=== PATIENT | male | born 1985 | race Hispanic/Latino ===

== ENCOUNTER 2016-09-27 09:59 | Emergency (ER) | payer MEDICAID, OTHER ==
[2016-09-27 10:11] VITALS: BP 133/87; PULSE 65; RESP 18; TEMP 98.1; O2SAT 98
[2016-09-27] MEDS ORDERED: Sodium Chloride 0.9% 1,000 ML IV ONE (10:29)
--- NOTE | 2016-09-27 10:30 | C.PDOC ---
History Of Present Illness 31 y/o male presents to the ED with complains of nausea, vomiting and lightheadedness. Pt reports feeling stressed and lightheaded the past couple days and overall not feeling well. Today, patient was due in court and vomited in the court room, then sent to ED for evaluation. Pt also reports newly diagnosed diabetes, supposed to be on medications but secondary to insurance issues is not. Pt denies headache, visual changes, numbness, weakness or any other complaints. Pt reports feeling better after vomiting. Time Seen by Provider: 09/27/16 10:23 Chief Complaint (Nursing): Abdominal Pain History Per: Patient History/Exam Limitations: no limitations Onset/Duration Of Symptoms: Hrs Current Symptoms Are (Timing): Better Severity: Mild Associated Symptoms: Nausea, Vomiting. denies: Fever, Diarrhea Alleviating Factors: None Recent travel outside of the [place]: No Past Medical History Reviewed: Historical Data, Nursing Documentation, Vital Signs Vital Signs: Last Vital Signs Temp 98.1 F 09/27/16 10:06 Pulse 65 09/27/16 10:06 Resp 18 09/27/16 10:06 BP 133/87 09/27/16 10:06 Pulse Ox 98 09/27/16 11:12 - Medical History PMH: Depression (MAJOR) Family History: States: Unknown Family Hx - Social History Hx Tobacco Use: No Hx Alcohol Use: No Hx Substance Use: No - Immunization History Hx Tetanus Toxoid Vaccination: No Hx Influenza Vaccination: No Hx Pneumococcal Vaccination: No Review Of Systems Constitutional: Negative for: Fever, Chills Eyes: Negative for: Vision Change Cardiovascular: Negative for: Chest Pain Gastrointestinal: Positive for: Nausea, Vomiting. Negative for: Abdominal Pain , Diarrhea Neurological: Positive for: Other (lightheaded). Negative for: Weakness, Numbness, Headache Physical Exam - Physical Exam Appears: Non-toxic, No Acute Distress Skin: Warm, Dry, No Rash Head: Atraumatic, Normacephalic, No Tenderness, No Swelling Eye(s): bilateral: Normal Inspection (no nystagmus), PERRL, EOMI Nose: Normal Oral Mucosa: Moist Neck: Normal, Normal ROM, Supple Chest: Symmetrical, No Tenderness Cardiovascular: Rhythm Regular, No Murmur Respiratory: Normal Breath Sounds, No Rales, No Rhonchi, No Wheezing Gastrointestinal/Abdominal: Normal Exam, Soft, No Tenderness, No Guarding, No Rebound Extremity: Normal ROM Extremity: Bilateral: Atraumatic, Normal Color And Temperature, Normal ROM Neurological/Psych: Oriented x3, Normal Speech Gait: Steady ED Course And Treatment - Laboratory Results Result Diagrams: 09/27/16 10:45 09/27/16 10:45 Lab Interpretation: No Acute Changes O2 Sat by Pulse Oximetry: 98 (room air) Pulse Ox Interpretation: Normal Medical Decision Making Medical Decision Making: Impression: 31 y.o male with nausea and vomiting, normal exam Plan: * labs * UA * IV fluids * Reglan Progress: Labs reviewed unremarkable. Patient reevaluated and reports complete resolution of symptoms and was able to tolerate PO. Patient feels comfortable going home and will be discharged. Patient given follow up instructions. Instructed to return to ER if symptoms worsen or new symptoms arise. Disposition Counseled Patient/Family Regarding: Need For Followup, Rx Given - Disposition Referrals: [facility] [Outside] [facility] [Outside] Disposition: HOME/ ROUTINE Disposition Time: 11:11 Condition: STABLE Additional Instructions: Your labs were normal Please take medication as needed Follow up with your primary doctor or clinic for further evaluation Return to the emergency department at any time if symptoms persist or worsen. Prescriptions: Metoclopramide [Reglan] 1 tab PO TID PRN #25 tab PRN Reason: Nausea/Vomiting Instructions: Acute Nausea and Vomiting (ED) - POA Present On Arrival: None - Clinical Impression Clinical Impression: Nausea, Stress - PA / AUTOMOBILE ENGINE ASSEMBLER / Resident Statement MD/DO has reviewed & agrees with the documentation as recorded. - Scribe Statement The provider has reviewed the documentation as recorded by the Amy Hardy All medical record entries made by the Pierceibprosper were at my direction and personally dictated by me. I have reviewed the chart and agree that the record accurately reflects my personal performance of the history, physical exam, medical decision making, and the department course for this patient. I have also personally directed, reviewed, and agree with the discharge instructions and disposition.
[2016-09-27] MEDS ORDERED: Sodium Chloride 0.9% 1,000 ML ONE (10:36)
[2016-09-27 10:50] LABS: BASO % 0.4 % (0.0-2.0); EOS # 0.1 K/uL (0.0-0.7); EOS % 0.7 % (0.0-4.0); HEMATOCRIT 41.2 % (35.0-51.0); LYMPH % 19.2 % (20.0-40.0); MEAN CELL VOLUME 88.1 fL (80.0-94.0); MEAN CORPUSCULAR HEMOGLOBIN 29.9 pg (27.0-31.0); MEAN CORPUSCULAR HGB CONC 33.9 g/dL (33.0-37.0); MEAN PLATELET VOLUME 9.5 fL (7.2-11.7); MONO # 0.7 K/uL (0.0-0.8); RED CELL DISTRIBUTION WIDTH 13.2 % (11.5-14.5); WHITE BLOOD COUNT 10.3 K/uL (4.8-10.8)
[2016-09-27 10:59] LABS: CHLORIDE 103 mmol/L (98-107); RBC URINE 1 /hpf (0-3); URINE BILIRUBIN NEGATIVE (NEGATIVE); URINE BLOOD NEGATIVE (NEGATIVE); URINE COLOR Yellow (YELLOW); URINE GLUCOSE (UA) NORMAL (Normal); URINE KETONE NEGATIVE (NEGATIVE); URINE LEUKOCYTE ESTERASE NEG Leu/uL (Negative); URINE PROTEIN NEGATIVE (NEGATIVE); URINE UROBILINOGEN NORMAL mg/dL (0.2-1.0); WBC URINE 1 /hpf (0-5)
[2016-09-27 11:00] LABS: POTASSIUM 3.9 mmol/L (3.6-5.2); SODIUM 139 mmol/L (132-148)
[2016-09-27 11:02] LABS: ALB/GLOB RATIO 1.3 (1.0-2.1); ALKALINE PHOSPHATASE 56 U/L (38-126); AST/SGOT 29 U/L (17-59); BILIRUBIN,TOTAL 1.1 mg/dL (0.2-1.3); CARBON DIOXIDE 26 mmol/L (22-30); GFR AFRICAN-AMERICAN > 60; TOTAL PROTEIN 7.9 g/dL (6.3-8.3)
[2016-09-27 11:03] LABS: ALT/SGPT 26 U/L (21-72); BLOOD UREA NITROGEN 15 mg/dL (9-20); CALCIUM 9.6 mg/dl (8.6-10.4); GLUCOSE,RANDOM 98 mg/dL (75-110)
== END 2016-09-27 11:25 | disposition home or self-care (01) ==
LOC: C.ER 09:59
DX: Z73.3 Stress, not elsewhere classified (principal); R11.2 Nausea with vomiting, unspecified
CPT/HCPCS: 80053; 81001; 82948; 85025; 96361; 96374; 99283; J2765; J7040

== ENCOUNTER 2017-04-22 15:58 | Emergency (ER) | payer MEDICAID, OTHER ==
[2017-04-22 16:04] VITALS: BP 144/99; PULSE 63; RESP 18; TEMP 97.4; O2SAT 98
[2017-04-22] MEDS ORDERED: Amoxicillin-Clav 875-125 mg Tab PO STA (16:25)
--- NOTE | 2017-04-22 16:28 | C.PDOC ---
History Of Present Illness 32 yo male come in for evaluation of Right middle finger painful swelling, redness gradually developed around nail area for past 3 days. Pt admits to " bite nail". Otherwise, pt denies known trauma or injury, fever, chills, weakness , sensory or vascular deficits to Right middle finger. Ambulate to ED for evaluation, not in any apparent distress. Time Seen by Provider: 04/22/17 16:17 Chief Complaint (Nursing): Finger,Hand,&Wrist History Per: Patient History/Exam Limitations: no limitations Onset/Duration Of Symptoms: Gradual (For the past 3 days) Past Medical History Reviewed: Historical Data, Nursing Documentation, Vital Signs Vital Signs: Last Vital Signs Temp 97.4 F L 04/22/17 16:02 Pulse 63 04/22/17 16:02 Resp 18 04/22/17 16:02 BP 144/99 H 04/22/17 16:02 Pulse Ox 98 04/22/17 16:34 - Medical History PMH: Anxiety, Depression Family History: States: No Known Family Hx - Social History Hx Tobacco Use: No Hx Alcohol Use: No Hx Substance Use: No - Immunization History Hx Tetanus Toxoid Vaccination: No Hx Influenza Vaccination: No Hx Pneumococcal Vaccination: No Review Of Systems Except As Marked, All Systems Reviewed And Found Negative. Constitutional: Negative for: Fever, Chills Musculoskeletal: Positive for: Other ((+) Painful swelling and redness to the right middle finger) Neurological: Negative for: Weakness, Numbness Physical Exam - Physical Exam Appears: Well, Non-toxic, No Acute Distress Skin: Normal Color, Warm, Other ((+) mild edema and erythema over lateral aspect nail margin of Right middle phinger. NO flactualnce. no proximal streaking. FAROM of Right middle finger, no neurovascular deficits.) Extremity: Normal ROM, Tenderness (Right middle finger over nail margin.), No Deformity, Swelling (Right middle finger) Neurological/Psych: Oriented x3, Normal Speech, Normal Motor, Normal Sensation, Normal Reflexes ED Course And Treatment O2 Sat by Pulse Oximetry: 98 (RA) Pulse Ox Interpretation: Normal Progress Note: On re-eavluation, pt is afebrile, hemodynamicaly stable. NOn- toxic. Right hand; exam c/w middle finger paronychia. No clelulitis, no flactualnce. FAROM, no neurovascular deficits. Pt advised. ref. to F/u with PMD in 2-3 days for re-eavl. return if any new chnages. Medical Decision Making Medical Decision Making: PLAN: * Augmentin PO Disposition Counseled Patient/Family Regarding: Diagnosis, Need For Followup, Rx Given - Disposition Referrals: [facility] [Outside] Disposition: HOME/ ROUTINE Disposition Time: 16:26 Condition: STABLE Additional Instructions: WARM SALTY WATER FINGER SOAK DAILY FOR 5 MINUTES TAKE MEDICATION PRESCRIBED FOLLOW UP WITH PMD IN 2-3 DAYS FOR RE-EVALUATION. RETURN TO ED IF ANY WORSENING OR NEW CHANGES. Prescriptions: Amoxicillin/Clavulanate [Augmentin 875 MG-125 MG] 1 tab PO BID #14 tab Instructions: Paronychia (ED) Forms: [employer] (Australian) - Clinical Impression Clinical Impression: Paronychia - PA / STUDY COORDINATOR / Resident Statement MD/DO has reviewed & agrees with the documentation as recorded. - Scribe Statement The provider has reviewed the documentation as recorded by the Scribe Gladys Cueva All medical record entries made by the Scribe were at my direction and personally dictated by me. I have reviewed the chart and agree that the record accurately reflects my personal performance of the history, physical exam, medical decision making, and the department course for this patient. I have also personally directed, reviewed, and agree with the discharge instructions and disposition.
[2017-04-22] MEDS ORDERED: Amoxicillin-Clav 875-125 mg Tab PO ONE (16:47)
== END 2017-04-22 16:55 | disposition home or self-care (01) ==
LOC: C.ER 15:58
DX: L03.011 Cellulitis of right finger (principal)

== ENCOUNTER 2017-05-12 10:35 | Emergency (ER) | payer MEDICAID, OTHER ==
[2017-05-12 11:01] VITALS: PULSE 88
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
[2017-05-12 14:11] VITALS: BP 128/98; RESP 20; TEMP 98.7
[2017-05-12 15:33] VITALS: O2SAT 99
== END 2017-05-12 13:15 | disposition home or self-care (01) ==
LOC: C.ER 10:35
DX: S06.9X9A Unspecified intracranial injury with loss of consciousness of unspecified duration, initial encounter (principal); Y08.89XA Assault by other specified means, initial encounter; Y92.9 Unspecified place or not applicable

== ENCOUNTER 2017-05-12 13:24 | Emergency (ER) | payer MEDICAID ==
[2017-05-12 13:42] VITALS: RESP 18
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
[2017-05-12 14:54] VITALS: BP 160/94; PULSE 70; TEMP 98.4
[2017-05-14 09:48] VITALS: O2SAT 96
== END 2017-05-12 14:54 | disposition home or self-care (01) ==
LOC: C.ER 13:24
DX: S06.9X9D Unspecified intracranial injury with loss of consciousness of unspecified duration, subsequent encounter (principal); Y08.89XD Assault by other specified means, subsequent encounter

== ENCOUNTER 2018-03-16 13:55 | Emergency (ER) | payer MEDICAID, OTHER ==
[2018-03-16 14:07] VITALS: BMI 27.9
[2018-03-16 14:12] VITALS: BP 150/95; PULSE 75; RESP 18; TEMP 98; O2SAT 99
--- NOTE | 2018-03-16 14:23 | C.PDOC ---
History Of Present Illness 33 year old male presents to the ED for psych evaluation. Patient reports feelings of depression and suicidal ideations. No other medical complaints at this time. Denies fever, nausea, vomiting, and any other associated symptoms. Time Seen by Provider: 03/16/18 13:56 Chief Complaint (Nursing): Psychiatric Evaluation History Per: Patient History/Exam Limitations: no limitations Past Medical History Reviewed: Historical Data, Nursing Documentation, Vital Signs Vital Signs: Last Vital Signs Temp 98 F 03/16/18 14:08 Pulse 75 03/16/18 14:08 Resp 18 03/16/18 14:08 BP 150/95 H 03/16/18 14:08 Pulse Ox 99 03/16/18 14:08 - Medical History PMH: Anxiety, Depression, HTN Denies: Diabetes, Hepatitis, HIV, Seizures, Sexually Transmitted Disease Family History: States: Unknown Family Hx - Social History Hx Tobacco Use: No Hx Alcohol Use: No Hx Substance Use: No - Immunization History Hx Tetanus Toxoid Vaccination: No Hx Influenza Vaccination: No Hx Pneumococcal Vaccination: No Review Of Systems Except As Marked, All Systems Reviewed And Found Negative. Constitutional: Negative for: Fever Gastrointestinal: Negative for: Nausea, Vomiting Psych: Positive for: Depression, Suicidal ideation Physical Exam - Physical Exam Appears: Well, Non-toxic Skin: Normal Color, Warm, Dry Head: Atraumatic, Normacephalic Eye(s): bilateral: Normal Inspection Oral Mucosa: Moist Neck: Normal ROM, Supple Cardiovascular: Rhythm Regular, No Murmur Respiratory: Normal Breath Sounds, No Rales, No Rhonchi, No Wheezing Gastrointestinal/Abdominal: Normal Exam, Soft, No Tenderness Neurological/Psych: Oriented x3, Normal Speech ED Course And Treatment O2 Sat by Pulse Oximetry: 99 (RA) Pulse Ox Interpretation: Normal Medical Decision Making Medical Decision Making: Plan: -Blood sent. Urinalysis. Progress/Update: Patient stable for discharge home. medically cleared. cleared by crisis. Disposition - Disposition Disposition: HOME/ ROUTINE Disposition Time: 14:00 Condition: GOOD Additional Instructions: return to er with worsening symptoms or concerns. follow up as directed by crisis. Instructions: Depression, Suicide Prevention Forms: [employer] (American) - Clinical Impression Clinical Impression: Depression - Scribe Statement The provider has reviewed the documentation as recorded by the Scribe (Nena Bass) Provider Attestation: All medical record entries made by the Scribe were at my direction and personally dictated by me. I have reviewed the chart and agree that the record accurately reflects my personal performance of the history, physical exam, medical decision making, and the department course for this patient. I have also personally directed, reviewed, and agree with the discharge instructions and disposition.
== END 2018-03-16 16:35 | disposition home or self-care (01) ==
LOC: C.ER 13:55
DX: F32.9 Major depressive disorder, single episode, unspecified (principal); I10 Essential (primary) hypertension

== ENCOUNTER 2018-06-21 10:49 | Emergency (ER) | payer MEDICAID ==
[2018-06-21 10:49] VITALS: BMI 27.9
[2018-06-21 11:01] VITALS: BP 146/88; PULSE 82; RESP 20; TEMP 98.3; O2SAT 100
[2018-06-21] MEDS ORDERED: Lidocaine 5% Patch TD STA (11:12)
--- NOTE | 2018-06-21 11:14 | C.PDOC ---
History Of Present Illness 33 y/o male pt presents to the ER c/o right-sided lower back pain for x2 weeks. Associated sx includes right leg pain radiates from right lower back pain. Pt notes he was moving the refrigerator when the pain started. Pt took 1 tab of aleve BID with no relief. Back pain is worse with movement. Pt denies saddle anesthesia, bowel dysfunction and abdominal pain. Time Seen by Provider: 06/21/18 11:03 Chief Complaint (Nursing): Back Pain History Per: Patient History/Exam Limitations: no limitations Onset/Duration Of Symptoms: Days (x2 weeks ) Current Symptoms Are (Timing): Still Present Past Medical History Reviewed: Historical Data, Nursing Documentation, Vital Signs Vital Signs: Last Vital Signs Temp 98.3 F 06/21/18 10:56 Pulse 82 06/21/18 10:56 Resp 20 06/21/18 10:56 BP 146/88 06/21/18 10:56 Pulse Ox 100 06/21/18 10:56 - Medical History PMH: Anxiety, Depression, HTN Family History: States: Unknown Family Hx - Social History Hx Tobacco Use: No Hx Alcohol Use: No Hx Substance Use: No - Immunization History Hx Tetanus Toxoid Vaccination: No Hx Influenza Vaccination: No Hx Pneumococcal Vaccination: No Review Of Systems Gastrointestinal: Negative for: Abdominal Pain Genitourinary: Negative for: Other (bowel dysfunction ) Musculoskeletal: Positive for: Back Pain (right lower ), Leg Pain (right ) Neurological: Negative for: Other (saddle anesthesia ) Physical Exam - Physical Exam Appears: Non-toxic, No Acute Distress, Other (uncomfortable ) Skin: Warm, Dry Head: Atraumatic, Normacephalic Eye(s): bilateral: Normal Inspection Gastrointestinal/Abdominal: Soft, No Tenderness, No Distention, No Rebound Back: No CVA Tenderness, No Vertebral Tenderness, Muscle Spasm (right lumbar ), No Paraspinal Tenderness, Other (right sciatica tenderness; sensation intact ) Extremity: Normal ROM (x4), No Calf Tenderness, Capillary Refill (<2 sec) Neurological/Psych: Oriented x3, Normal Speech, Normal Cognition, Normal Motor, Normal Sensation ED Course And Treatment O2 Sat by Pulse Oximetry: 100 (RA) Pulse Ox Interpretation: Normal Medical Decision Making Medical Decision Making: Plans: -- lidocaine -- toradol -- tylenol 1157 pt feeling much better, will d/c home with nsaids and flexeril Disposition Counseled Patient/Family Regarding: Diagnosis, Need For Followup, Rx Given - Disposition Referrals: Roni Marvin, ARASH, SENIOR FUND ACCOUNTANT [Advanced Practice Nurse] - Disposition: HOME/ ROUTINE Disposition Time: 11:57 Condition: IMPROVED Additional Instructions: Remove patch from back in 12 hours. Take naproxen twice a day with food. Take muscle relaxant every 8 hours for next 2 days; makes you sleepy so no driving or working. After 2 days. may just take it at night. Take Tylenol 2-3 times per day in between doses of Naproxen. Prescriptions: Acetaminophen [Tylenol 325mg tab] 650 mg PO Q4 #50 tab Cyclobenzaprine [Cyclobenzaprine HCl] 10 mg PO Q8 #9 tab Naproxen 500 mg PO BID #30 tab Instructions: Muscle Spasms (DC) Forms: General Discharge Instructions, [facility] (Lao), Work Excuse - Clinical Impression Clinical Impression: Lumbar paraspinal muscle spasm - PA / LINK TRAINER MAINTENANCE MAN / Resident Statement / has reviewed & agrees with the documentation as recorded. - Scribe Statement The provider has reviewed the documentation as recorded by the Amy Velazquez Do All medical record entries made by the Amy were at my direction and personally dictated by me. I have reviewed the chart and agree that the record accurately reflects my personal performance of the history, physical exam, medical decision making, and the department course for this patient. I have also personally directed, reviewed, and agree with the discharge instructions and disposition.
[2018-06-21] MEDS ORDERED: Lidocaine 5% Patch TD ONE (11:27)
== END 2018-06-21 12:14 | disposition home or self-care (01) ==
LOC: C.ER 10:49
DX: M62.830 Muscle spasm of back (principal)
CPT/HCPCS: 96372; 99283; J1885